=== PATIENT | female | born 1980 | race Caucasian/White ===

== ENCOUNTER 2019-06-20 19:32 | Emergency (ER) | payer OTHER ==
[~2019-06-20] VITALS: Ht 167.6 cm; Wt 90.7 kg
--- NOTE | 2019-06-20 19:45 | NUR ---
PT AMBULATED TO BED #6
[2019-06-20 19:50] VITALS: BP 132/83
--- NOTE | 2019-06-20 19:54 | NUR ---
FIRST CONTACT PATIENT C/O L ARM/WRIST PAIN S/P FALL AT WORK. PATIENT STATES SHE LANDED ON L ARM/WRIST. NO OBVIOUS DEFORMITY NOTED, NO ERYTHEMA, NO SWELLING, +DECREASE ROM, +CMS. PATIENT DENIES ANY HEAD INJURY NO LOC. NO ACUTE DISTRESS NOTED. PATIENT GCS 15, AAOX4, AMBULATORY WITH STEADY GAIT. PATIENT DENIES ANY CP/SOB, NO N/V/D/F/C. NO ACUTE DISTRESS NOTED. WILL CONTINUE TO MONITOR
[2019-06-20] MEDS ORDERED: HYDROcodone/APAP 5/325 MG 1 TAB TAB PO ONE (20:30)
[2019-06-20] MEDS ORDERED: IBUPROFEN 600 MG TAB PO ONE (20:30)
[2019-06-20 22:40] VITALS: BP 130/81
--- NOTE | 2019-06-20 22:41 | NUR ---
Patient discharged with v/s stable. Written and verbal after care instructions given and explained. Patient alert, oriented and verbalized understanding of instructions. Ambulatory with steady gait. All questions addressed prior to discharge. ID band removed. Patient advised to follow up with PMD. Rx of NORCO AND IBURPROFEN given. Patient educated on indication of medication including possible reaction and side effects. Opportunity to ask questions provided and answered.
== END 2019-06-20 22:36 | disposition home or self-care (01) ==
LOC: MED 19:32
DX: S52.125A Nondisplaced fracture of head of left radius, initial encounter for closed fracture (principal); W10.8XXA Fall (on) (from) other stairs and steps, initial encounter; Y93.01 Activity, walking, marching and hiking; Y92.89 Other specified places as the place of occurrence of the external cause; Y99.8 Other external cause status
CPT/HCPCS: 29105; 73080; 73090; 73110; 99283; Q0092

== ENCOUNTER 2023-01-02 12:50 | Emergency (ER) | payer OTHER ==
[~2023-01-02] VITALS: Ht 172.7 cm; Wt 127.0 kg
[2023-01-02 13:02] VITALS: BP 128/83
[2023-01-02] MEDS ORDERED: KETOROLAC 30 MG/ML VIAL IM ONE (13:35)
[2023-01-02] MEDS ORDERED: CAPS1ADH5 TP (13:50)
[2023-01-02] MEDS ORDERED: DICL100G5 TP (13:50)
[2023-01-02] MEDS ORDERED: NAPR-1704 PO (13:50)
[2023-01-02 14:00] VITALS: BP 128/83
--- NOTE | 2023-01-02 14:00 | NUR ---
Patient discharged with v/s stable. Written and verbal after care instructions given and explained. Patient alert, oriented and verbalized understanding of instructions. Ambulatory with steady gait. All questions addressed prior to discharge. ID band removed. Patient advised to follow up with PMD. Rx of SALONPAS, DICLOFENAC, NAPROXEN (SENT) given. Patient educated on indication of medication including possible reaction and side effects. Opportunity to ask questions provided and answered.
[2023-01-02 14:07] LABS: APPEARANCE,URINE TURBID (CLEAR); BILIRUBIN,URINE NEGATIVE (NEGATIVE); BLOOD, URINE TRACE-I (NEGATIVE); COLOR,URINE YELLOW (YELLOW); LEUKOCYTE ESTERASE ,URINE NEGATIVE (NEGATIVE); NITRITE, URINE NEGATIVE (NEGATIVE); PH,URINE 5.5 (5.0-9.0); UGLUCOSE NEGATIVE (NEGATIVE)
[2023-01-02 14:14] LABS: RBC,URINE 0-5 /HPF (0-5); URINE AMORPHOUS URATE 4+ /HPF (None Seen)
== END 2023-01-02 14:00 | disposition home or self-care (01) ==
LOC: MED 12:50
DX: M54.31 Sciatica, right side (principal); Z79.899 Other long term (current) drug therapy
CPT/HCPCS: 81001; 81025; 96372; 99283; J1885

== ENCOUNTER 2023-04-01 15:10 | Emergency (ER) | payer OTHER ==
[~2023-04-01] VITALS: Ht 175.3 cm; Wt 111.6 kg
[~2023-04-01 15:10] MED LIST: CAPS1ADH5 TP; DICL100G5 TP; NAPR-1704 PO
[2023-04-01 15:19] VITALS: BP 135/85; PULSE 87; RESP 18; TEMP 97.7; O2SAT 98
[2023-04-01 16:48] LABS: APPEARANCE,URINE CLEAR (CLEAR); BILIRUBIN,URINE NEGATIVE (NEGATIVE); BLOOD, URINE NEGATIVE (NEGATIVE); COLOR,URINE YELLOW (YELLOW); LEUKOCYTE ESTERASE ,URINE NEGATIVE (NEGATIVE); NITRITE, URINE NEGATIVE (NEGATIVE); PROTEIN,URINE NEGATIVE (NEGATIVE); UGLUCOSE NEGATIVE (NEGATIVE); UROBILINOGEN,URINE 0.2 EU/dL (0.2 - 1)
[2023-04-01 17:08] LABS: BASOPHILS # (AUTO) 0.1 K/uL (0.00-0.22); BASOPHILS % (AUTO) 0.8 % (0.0-2.0); EOSINOPHILS # (AUTO) 0.1 K/uL (0-0.4); EOSINOPHILS % (AUTO) 1.6 % (0.0-4.0); HEMATOCRIT 41.8 % (36-48); HEMOGLOBIN 13.9 g/dL (12.0-16.0); LYMPHOCYTES # (AUTO) 3.3 K/uL (2.5-16.5); LYMPHOCYTES % (AUTO) 41.3 % (20.5-51.1); MEAN CORPUSCULAR HEMOGLOBIN 29 pg (27-31); MEAN CORPUSCULAR HGB CONC 33 g/dL (33-37); MEAN CORPUSCULAR VOLUME 87.2 fL (80-94); MONOCYTES # (AUTO) 0.7 K/uL (0.8-1.0); MONOCYTES % (AUTO) 8.3 % (1.7-9.3); NEUTROPHILS # (AUTO) 3.8 K/uL (1.8-7.7); PLATELET COUNT (AUTO) 269 K/uL (140-450); RED BLOOD CELL COUNT(AUTO) 4.79 MIL/uL (4.20-5.40); RED CELL DISTRIBUTION WIDTH 13.4 % (11.6-13.7)
[2023-04-01 17:15] LABS: ANION GAP 12.6 (8-16); CALCIUM 8.7 mg/dL (8.5-10.1); CREATININE 0.8 mg/dL (0.6-1.3); POTASSIUM 3.6 mmol/L (3.5-5.1)
[2023-04-01 19:19] VITALS: BP 135/85; PULSE 87; RESP 18; TEMP 97.7; O2SAT 98
[2023-04-01 19:36] LABS: FLU A ANTIGEN negative (NEGATIVE); FLU B ANTIGEN NEGATIVE (NEGATIVE)
== END 2023-04-01 19:17 | disposition home or self-care (01) ==
LOC: MED 15:10
DX: B34.9 Viral infection, unspecified (principal); R50.9 Fever, unspecified; R11.0 Nausea; Z79.899 Other long term (current) drug therapy; Z20.822 Contact with and (suspected) exposure to COVID-19
CPT/HCPCS: 36415; 71045; 80048; 81003; 81025; 85025; 99284

== ENCOUNTER 2024-05-05 09:45 | Emergency (ER) | payer OTHER ==
[~2024-05-05] VITALS: Ht 162.6 cm; Wt 114.8 kg
[~2024-05-05 09:45] MED LIST changes: +DICL100G32 TP; -DICL100G5 TP
[2024-05-05 10:02] VITALS: BP 125/74; PULSE 73; RESP 15; TEMP 98.6; O2SAT 96
[2024-05-05 11:41] LABS: BILIRUBIN,URINE NEGATIVE (NEGATIVE); BLOOD, URINE NEGATIVE (NEGATIVE); COLOR,URINE YELLOW (YELLOW); LEUKOCYTE ESTERASE ,URINE TRACE (NEGATIVE); NITRITE, URINE POSITIVE (NEGATIVE); PROTEIN,URINE NEGATIVE (NEGATIVE); UGLUCOSE NEGATIVE (NEGATIVE)
[2024-05-05 11:42] LABS: APPEARANCE,URINE SLIGHTLY HAZY (CLEAR)
[2024-05-05 11:44] LABS: BACTERIA,URINE 1+ /HPF (None Seen); RBC,URINE 0 /HPF (0-5); SQUAMOUS EPITHELIAL CELL,UR 4-10 (MOD) /LPF (0-3 (FEW)); WBC,URINE 0-5 /HPF (0-5)
[2024-05-05 11:45] LABS: MUCUS,URINE None Seen /LPF (None Seen)
[2024-05-05] MEDS ORDERED: CEPH-588 PO (12:04)
[2024-05-05 12:28] VITALS: BP 120/70; PULSE 68; RESP 15; TEMP 37.00296; O2SAT 96
== END 2024-05-05 12:28 | disposition home or self-care (01) ==
LOC: MED 09:45
DX: N39.0 Urinary tract infection, site not specified (principal); Z79.899 Other long term (current) drug therapy
CPT/HCPCS: 81001; 81025; 99283